=== PATIENT | female | born 1930 | race Caucasian/White ===

== ENCOUNTER 2018-10-20 23:55 | Inpatient (IN) | payer BC ==
[~2018-10-20] VITALS: Ht 144.8 cm; Wt 51.7 kg
[2018-10-21] VITALS (7 sets, daily range): BP systolic 101–151; BP diastolic 46–69
[2018-10-21 00:48] LABS: BASOPHIL % 0.8 % (0-2)
[2018-10-21 00:50] LABS: CALCIUM 8.2 mg/dL (8.5-10.1); CARBON DIOXIDE 25.9 mmol/L (21-32); CHLORIDE SERUM 107 mmol/L (98-107); CREATININE SERUM 0.7 mg/dL (0.6-1.0); GLUCOSE SERUM 97 mg/dL (74-106); POTASSIUM SERUM 3.4 mmol/L (3.5-5.1); SODIUM SERUM 141 mmol/L (136-145)
[2018-10-21 00:56] LABS: ALKALINE PHOSPHATASE 236 U/L (46-116); ALT/SGPT 28 U/L (14-59); AST/SGOT 58 U/L (15-37)
[2018-10-21 00:57] LABS: ALBUMIN 2.8 g/dL (3.4-5.0); TOTAL PROTEIN, SERUM 8.4 g/dL (6.4-8.2)
[2018-10-21 01:00] LABS: RED CELL DISTRIBUTION WIDTH 14.9 % (11.5-14.5)
[2018-10-21 01:01] LABS: PLATELET COUNT 87 x10^3mcL (130-400)
[2018-10-21] MEDS ORDERED: CHILDREN'S5 MG/5 M1 (01:53)
[2018-10-21 04:06] LABS: PHOSPHOROUS 3.1 mg/dL (2.5-4.9)
[2018-10-21 04:07] LABS: CHOLESTEROL/HDL RATIO 2.4
[2018-10-21 04:12] LABS: T3 TOTAL 1.42 ng/mL
[2018-10-21 04:13] LABS: FREE T4 1.48 ng/dL (0.76-1.46); FREE THYROXINE INDEX 3.2 ug/dL (1.4-4.5); T4(THYROXINE) 9.8 ug/dL (4.7-13.3)
[2018-10-21 07:25] LABS: CARBON DIOXIDE 27.3 mmol/L (21-32); CHLORIDE SERUM 109 mmol/L (98-107); CREATININE SERUM 0.6 mg/dL (0.6-1.0); GLUCOSE SERUM 81 mg/dL (74-106); MAGNESIUM 1.9 mg/dL (1.8-2.4); PHOSPHOROUS 3.3 mg/dL (2.5-4.9); SODIUM SERUM 140 mmol/L (136-145)
[2018-10-21 08:08] LABS: BASOPHIL % 0.6 % (0-2); RED CELL DISTRIBUTION WIDTH 14.4 % (11.5-14.5)
[2018-10-21 08:18] LABS: PLATELET COUNT 70 x10^3mcL (130-400)
[2018-10-22 05:52] VITALS: BP 102/45
[2018-10-22 07:15] VITALS: BP 117/51
[2018-10-22 12:00] VITALS: BP 140/54
[2018-10-22 15:05] VITALS: BP 109/49
[2018-10-22] MEDS ORDERED: GOOD SENSE ASPI81 M3 PO (17:15)
[2018-10-22] MEDS ORDERED: METOPROLOL SUCC25 M2 PO (17:16)
[2018-10-22 17:23] VITALS: BP 109/49
== END 2018-10-22 18:06 | disposition home or self-care (01) | DRG 203 ==
LOC: ED 23:55 → DU 10-21 02:10
PROVIDERS: Emergency Medicine; Internal Medicine; ADMIT General Practice
DX: R07.9 Chest pain, unspecified (principal); E43 Unspecified severe protein-calorie malnutrition; I50.43 Acute on chronic combined systolic (congestive) and diastolic (congestive) heart failure; I11.0 Hypertensive heart disease with heart failure; D69.6 Thrombocytopenia, unspecified; E87.6 Hypokalemia
CPT/HCPCS: 83880; 84439; 90658; A9500; J1940; J2785; J7030; Q0092